=== PATIENT | male | born 1985 | race Caucasian/White ===

== ENCOUNTER 2021-05-29 16:18 | Emergency (ER) | payer SELFPAY ==
[2021-05-29] MEDS ORDERED: CEPHALEXIN500 MG PO (17:41)
[2021-05-29] MEDS ORDERED: BACTROBAN OINT22 GM EXT (17:41)
== END 2021-05-29 17:55 | disposition home or self-care (01) ==
LOC: ER1 16:18
DX: S91.012A Laceration without foreign body, left ankle, initial encounter (principal); E11.9 Type 2 diabetes mellitus without complications; W26.0XXA Contact with knife, initial encounter
CPT/HCPCS: 12001; 90471; 90715; 99282